=== PATIENT | male | born 1980 | race Caucasian/White ===

== ENCOUNTER 2017-01-03 13:25 | Emergency (ER) | payer OTHER ==
[~2017-01-03 13:25] MED LIST: ALBUTEROL0.63 MG/1 IH; CYCLOBENZAPRINE5 M1 PO; DARVOCET-N 1001 TAB PO; DELTASONE10 MG PO; DICLOFENAC POTA50 M1 PO; FLEXERIL10 MG PO; IBUPROFEN800 MG PO; LEVAQUIN750 M1 PO; MEDROL4 M2 PO; NKDA; NO HOME MEDICATION XX; NORCO 5/325 TAB1 TAB PO
[2017-01-03] MEDS ORDERED: PREDNISONE20 M1 PO (14:50)
[2017-01-03] MEDS ORDERED: NORCO 5-325 TA1 EACH PO (14:50)
== END 2017-01-03 15:36 ==
LOC: EDMED 13:25
DX: M77.9 Enthesopathy, unspecified (principal); F17.210 Nicotine dependence, cigarettes, uncomplicated